=== PATIENT | male | born 1970 | race Hispanic/Latino ===

== ENCOUNTER 2016-11-19 15:57 | Emergency (ER) | payer OTHER ==
[~2016-11-19] VITALS: Ht 177.8 cm; Wt 81.8 kg
[2016-11-19 16:05] VITALS: BP 134/85; PULSE 74; RESP 18; O2SAT 96
[2016-11-19] MEDS ORDERED: BENZ-12 PO (19:48)
--- NOTE | 2016-11-19 19:48 | ED.REPORT ---
HPI-URI / Cough / Cold Date of Service Nov 19, 2016 ED Provider: Ken Rao PA-C Deng is an otherwise healthy 46-year-old male who presents with a three-week history of cough. His cough was associated in the first week with congestion, rhinorrhea, eye & ear pain as well as episodes of subjective fever and one episode of vomiting. This has largely resolved leaving only a cough productive of yellow sputum. Admits to occasional smoking. Denies recent travel, shortness of breath, dyspnea, chest pain, palpitations, abdominal pain. Nursing Notes Stated Complaint: COUGH, FEVER Chief Complaint: FLU/Cold Symptoms Nursing Notes Reviewed: Yes Allergies: Coded Allergies: No Known Allergies (Verified Allergy, Unknown, 11/19/16) Scheduled PRN Benzonatate (Tessalon Perle) 100 Mg Capsule 100 MG PO TID PRN PRN For Cough General Time Seen by MD: 19:32 Chief Complaint Cough, productive... (Yellow) Review of Systems Negative unless stated otherwise in history of present illness Physical Exam General: Well appearing, well developed, well nourished, no acute distress. Head: Atraumatic, normocephalic. No mastoid tenderness. Eyes: No scleral icterus or injection. No discharge. PERRL. Vision grossly intact. Ears: Pinna and tragus nontender with manipulation. External auditory canal patent, atraumatic and without discharge. Tympanic membrane wall, shiny and translucent without fluid, bulging, retraction or perforation. Hearing grossly intact. Nose: Symmetrical, nares patent without discharge. No frontal or maxillary sinus tenderness. Mouth/pharynx: normal dentition, mucus membranes moist. Tonsils 2+ and symmetrical, uvula midline. Pharynx noninjected, no cobblestoning or discharge. Voice clear. Neck: No tenderness or lymphadenopathy. Trachea midline. Respiratory: Regular rate and rhythm. Breath sounds present, clear to auscultation and equal bilaterally. Cardiovascular: Regular rate and rhythm, without murmur, gallop or rub. No pedal edema. Gastrointestinal: Abdomen flat and non-tender without guarding or rebound. Bowel sounds normoactive. Skin: Warm and dry. Neurological: Grossly nonfocal. Psychological: Alert and oriented. Speech appropriate, linear and logical. Behavior appropriate. Initial Vital Signs Vital Signs (First) Date Time Temp Pulse Resp B/P Pulse Ox O2 Delivery O2 Flow Rate FiO2 11/19/16 16:05 36.8 74 18 134/85 96 Room Air Initial VS: Reviewed Re-Eval/Medical Decision Med Decision/Clinical Course Otherwise healthy 46-year-old male presents with a three-week history of cough productive of yellow sputum. Patient states it began with classic URI symptoms in the first week since resolved. Physical exam is benign. Lungs are clear, afebrile. I do not see indication for chest x-ray at this time. I believe this is a resolving upper respiratory infection versus something more concerning such as pneumonia, tuberculosis, lung mass. Advise primary care follow-up, symptomatic care and provided return precautions. Discharge & Departure Impression: Primary Impression: Upper respiratory infection URI type: unspecified viral URI Qualified Code: J06.9 - Acute upper respiratory infection, unspecified Disposition: Home Discharge Condition All VS Reviewed: Yes Condition: Stable Patient Instructions: Upper Respiratory Infection (ED) Additional Instructions: History and physical are reassuring that this is unlikely to be a condition such as pneumonia or strep throat that requires antibiotic treatment. I believe that you have a viral upper respiratory infection. Rest, drink small amounts of fluids throughout the day, and eat small amounts of food as tolerated. The treatment is largely symptomatic: I typically recommend doxylamine/ dextromethorphan (brand name: Robitussin Extra Strength Nighttime Cough DM) for use at night, which will help you sleep and reduce cough. If your pharmacy does not have this, ask your pharmacist to recommend an alternative. Pain and fever is best treated with 400 mg of ibuprofen (Advil, Motrin) every 6 hours, or 1000 mg of acetaminophen (Tylenol) every 6 hours. These drugs can be taken at the same time for more severe pain. Pseudoephedrine (Sudafed) taken in the morning will help relieve nasal congestion. In many pharmacies this is kept behind the counter, so asked the pharmacist. Cepacol lozenges are very helpful for sore throat. I will also write a prescription for Tessalon Perle, which is a cough suppressant Follow-up with your primary care provider if your symptoms have not significantly improved in a week. Remember that sometimes a cough can take up to a month to completely resolve. Return to the emergency department for new or worsening symptoms including chest pain, shortness of breath, difficulty breathing or speaking. Referrals: Juan Antonio Lynch MD (PCP) EDSupervising Provider for APC: Carl Powell MD, Seth PA-C Nov 19, 2016 19:48
== END 2016-11-19 19:58 | disposition home or self-care (01) ==
LOC: SED 15:57
DX: J06.9 Acute upper respiratory infection, unspecified (principal); R05 Cough

== ENCOUNTER 2016-11-20 22:08 | Emergency (ER) | payer OTHER ==
[~2016-11-20] VITALS: Ht 177.8 cm; Wt 83.2 kg
[~2016-11-20 22:08] MED LIST: BENZ-12 PO
[2016-11-20 22:40] VITALS: BP 130/81; RESP 16; O2SAT 96
[2016-11-21 01:07] VITALS: BP 140/89; PULSE 72; RESP 16; O2SAT 95
--- NOTE | 2016-11-21 01:44 | ED.REPORT ---
HPI-General Illness Date of Service Nov 21, 2016 ED Provider: Chris Rand DO This patient is an otherwise healthy 46 year old male presenting to the ED after he discovered a bump in his nose 2 hrs ago. Patient states that he was blowing his nose when he noticed the bump. He was seen in the ED yesterday for an URI, with ongoing nasal congestion and cough. He denies foreign body entering nostrils or fever. Nursing Notes Stated Complaint: LUMP IN NOSE Chief Complaint: ENT & Mouth Nursing Notes Reviewed: Yes Allergies: Coded Allergies: No Known Allergies (Verified Allergy, Unknown, 11/20/16) Scheduled PRN Benzonatate (Tessalon Perle) 100 Mg Capsule 100 MG PO TID PRN PRN For Cough General Time Seen by MD: 01:44 Chief Complaint Other (Nasal pain) Hx Obtained From: Patient Arrived By: Walk-in Onset Occurred: 1 - 4 hours ago Symptom Duration: Since onset Radiation: : Does not radiate Severity: Current: Moderate Severity: Maximum: Moderate Recent Healthcare: No recent hospitalization, Recent doctor visit Similar Sx Previous: No Past Medical History Past Medical History None reported Past Surgical History None reported Smoking History Unknown if Ever Smoker Social History Alcohol Use: "Social" Other Social History: Local resident Ambulatory Status Independent Review of Systems Full Review of Systems Constitutional: Denies: Chills, Fever Ears / Nose / Throat: Reports: Nasal congestion, Sinus problem (Nasal pain) Complete sys rev & neg: except as marked. Physical Exam Vital Signs Vital Signs Date Time Temp Pulse Resp B/P Pulse Ox O2 Delivery O2 Flow Rate FiO2 11/21/16 02:28 36.1 71 14 132/89 95 Room Air 11/21/16 01:07 36.2 72 16 140/89 95 Room Air 11/20/16 22:40 36.6 73 16 130/81 96 Room Air Initial VS: Reviewed Head / Eyes: Atraumatic, Normocephalic, PERRL Neck: Supple, Non-tender, Full range of motion Respiratory: Breath sounds normal, Clear to auscultation, No respiratory distress Cardiovascular: Regular rate & rhythm, Heart sounds normal, Intact distal pulses Extremities: Vascular intact, Neuro intact, No swelling, No tenderness Skin: Warm, Dry, No cyanosis Neurologic: Alert, Oriented, Nonfocal Psychiatric: Mood/affect normal, Behavior normal, Normal thought content ENT: Airway patent, Mucous membranes moist Nasal polyp found upon exam, possible mucocele Interpretation & Diagnostics Pulse Oximetry Interpretation Pulse Oximetry Interpretation: 95% on room air Re-Eval/Medical Decision Med Decision/Clinical Course I am not sure if this is a nasal polyp or mucocele. I am certain that it is worth a trial of steroids and ear nose and throat follow-up. We will place him on nasal steroids and refer to ear nose and throat. Source of Hx: Old records Time of Eval: 03:00 Re-Evaluation/Progress Note: Informed patient of the exam findings. Patient understands and agrees with the plan to be discharged home. Discharge instructions and follow-up discussed. All questions were addressed. Return to the ED warnings given. Counseled Regarding: Diagnosis, Lab results, Need for follow-up, When/why to return to ED Discharge & Departure Primary Impression: Nasal polyp Disposition: Home Discharge Condition All VS Reviewed: Yes Condition: Stable Patient Instructions: Sinusitis (ED) Additional Instructions: You have either a nasal polyp oral mucocele. Use Flonase 2 sprays each nostril daily. This should help. Call the referral ear nose and throat surgeon and have this looked at. It may require surgical resection. Try to keep your nares moistened with Vaseline. If you develop a fever or any purulent nasal discharge, come back to the emergency department or see her primary care physician. Return if any problems or any worsening symptoms. Referrals: Juan Antonio Lynch MD (PCP) Martín Shaikh MD Scribe Attestation Portions of this note were transcribed by Sarina Segovia I, Dr. Rand personally performed the history, physical exam and medical decision-making ; I reviewed and confirmed the accuracy of the information in the transcribed note. Signed by: Sarina Cao and Joan cEhevarria, 11/21/2016 and 0359 copies to: Martín Shaikh MD; Juan Antonio Lynch MD, Todd P DO Nov 21, 2016 01:44 Carmen Cao [Sarina] Nov 21, 2016 02:14 Karen Segovia Nov 21, 2016 03:59
[2016-11-21 02:28] VITALS: BP 132/89; PULSE 71; RESP 14; O2SAT 95
== END 2016-11-21 02:26 | disposition home or self-care (01) ==
LOC: SED 22:08
DX: J33.9 Nasal polyp, unspecified (principal)

== ENCOUNTER 2016-11-23 09:15 | Emergency (ER) | payer OTHER ==
[~2016-11-23] VITALS: Ht 177.8 cm; Wt 83.2 kg
[2016-11-23 09:18] VITALS: BP 131/91; RESP 16; O2SAT 98
--- NOTE | 2016-11-23 09:24 | ED.REPORT ---
HPI-Facial Injury Date of Service Nov 23, 2016 ED Provider: Dr. Powell 46 year old male with no significant past medical history presents to the ED due to a "lump" in the L nare that he noticed about 1 week ago. Pt has had a URI for 3 weeks. He denies any pain but his nose is irritated with blowing his nose. He also complains of headache but denies CP, SOB, fever, nausea and vomiting. Nursing Notes Stated Complaint: LUMP IN NOSE Chief Complaint: ENT & Mouth Nursing Notes Reviewed: Yes Allergies: Coded Allergies: No Known Allergies (Verified Allergy, Unknown, 11/20/16) Scheduled PRN Benzonatate (Tessalon Perle) 100 Mg Capsule 100 MG PO TID PRN PRN For Cough General Time Seen by Provider: 09:25 Chief Complaint Other (Nasal "lump) Hx Obtained From: Patient Arrived By: Walk-in Onset Occurred: 1 week ago Symptom Duration: Since onset Progression Since Onset: Constant Severity: Current: No pain currently Associated with: Reports: Headache, Denies: Shortness of breath Past Medical History Past Medical History None reported Past Surgical History None reported Smoking History Unknown if Ever Smoker Social History Alcohol Use: "Social" Other Social History: Local resident Ambulatory Status Independent Review of Systems Basic Review of Systems Respiratory: No shortness of breath, No cough, No wheeze Cardiovascular: No chest pain, No dyspnea on exertion, No orthopnea, No parox noct dyspnea, No palpitations GI: No abdominal pain, No anorexia, No nausea, No vomiting Allergy / Immune: No allergy Psychiatric: Normal thought content Constitutional: Denies: Fever Ears / Nose / Throat: Denies: Sore throat Musculoskeletal: Denies: Neck pain Skin: Denies Diaphoresis, Denies Rash Neurologic: Reports: Headache Complete sys rev & neg: except as marked. Physical Exam Initial Vital Signs Vital Signs (First) Date Time Temp Pulse Resp B/P Pulse Ox O2 Delivery O2 Flow Rate FiO2 11/23/16 09:18 36.2 64 16 131/91 98 Room Air Initial VS: Reviewed General/Constitutional: Well-developed, Well-nourished Respiratory: No respiratory distress Skin: Warm, Dry, No cyanosis Psychiatric: Mood/affect normal, Behavior normal, Normal thought content Head / Eyes: Atraumatic, Normocephalic, PERRL Nose exam: Large protruding polyp partially obstructing the L nostril. Smooth regular mucosal surface. Neck: Atraumatic, Full range of motion Neurologic: Oriented X3, Speech NL Re-Eval/Medical Decision Re-Evaluation/Progress : Time of Eval: 09:31 Re-Evaluation/Progress Note: Discussed plan for discharge and follow up. All questions addressed. Counseled Regarding: Diagnosis, Need for follow-up, When/why to return to ED Discharge & Departure Impression: Primary Impression: Nasal polyp Disposition: Home Discharge Condition All VS Reviewed: Yes Condition: Improved Additional Instructions: Follow up with ENT who can remove this in the next few days. You can use Afrin nasal spray to help with breathing. If you have any difficulties, call the emergency department after 9 AM tomorrow and I can help you with the appointment. Referrals: Juan Antonio Lynch MD (PCP) You Meyer MD 1 Day Scribe Attestation Portions of this note were transcribed by Deyanira Dykes. I, (Dr. Powell) personally performed the history, physical exam and medical decision-making; I reviewed and confirmed the accuracy of the information in the transcribed note. Signed by: Deyanira Dykes. 11/23/2016, 0928 copies to: Juan Antonio Lynch MD; You Meyer MD, Kirk H MD Nov 23, 2016 09:24 Deyanira Dykes Nov 23, 2016 09:31
[2016-11-23 09:36] VITALS: BP 131/91; PULSE 64; RESP 16; O2SAT 98
== END 2016-11-23 09:37 | disposition home or self-care (01) ==
LOC: SED 09:15
DX: J33.9 Nasal polyp, unspecified (principal); R51 Headache